=== PATIENT | female | born 1995 | race Hispanic/Latino ===

== ENCOUNTER → 2023-11-03 09:50 | Outpatient (CLI) | payer OTHER, SELFPAY ==
[2023-11-03 12:29] LABS: HIV 1 & 2 Ab/Ag 4th Gen Combo NEGATIVE (NEGATIVE); Hep C Virus Ab w/Reflex Quant NEGATIVE s/c (NEGATIVE)
[2023-11-03 13:00] LABS: Urine N gonorrhoeae NOT DETECTED
[2023-11-03 13:02] LABS: Urine Chlamydia NOT DETECTED
[2023-11-04 06:53] LABS: RPR Screen Non Reactive (Non Reactive)
== END ==
PROVIDERS: Referring Provider Physician Assistant Medical; Visit Provider Physician Assistant Medical
DX: Z11.3 Encounter for screening for infections with a predominantly sexual mode of transmission (principal)
CPT/HCPCS: 36415; 86592; 86803; 87389; 87491; 87591